=== PATIENT | male | born 1965 | race Caucasian/White ===

== ENCOUNTER 2021-09-30 12:46 | Emergency (ER) | payer OTHER, MEDICAID, SELFPAY ==
[2021-09-30 12:51] VITALS: BP 135/86; PULSE 61; RESP 16; TEMP 36.1; O2SAT 98; BMI 34.3
--- NOTE | 2021-09-30 14:34 | PC.NURSE ---
pt states he has had ear problems for 5-6years and has an appointment on the with [facility] ENT. Hx of ear infections. this time is different, he has never lost his hearing before. pt states he has been feeling dizzy and nauseated and his left eye feels blurry and swollen. He does not have ear wax any more, it is instead a white chalky discharge normally. pt feels pressure, like something is trying to push out of his ear.
--- NOTE | 2021-09-30 14:56 | ED.EAR ---
HPI - Ear Problem <LEFTY Cavazos Last Filed: 09/30/21 15:05> General Chief complaint: Ear Stated complaint: Sudden hearing loss in left ear Time Seen by Provider: 09/30/21 14:42 Mode of arrival: Ambulatory History of Present Illness HPI Narrative: This is a 56-year-old male presents to the emergency department due to decreased hearing as well clear drainage the left ear onset a few days ago. States that he has a chronic history of ear infections but is primarily concerned as he has had some decreased hearing on the left. Denies any fevers, but reports nausea as well slight dizziness. Has a follow-up appointment with ENT on 10/12/2021. Related Data Previous Rx's Medication Instructions Recorded ciprofloxacin 0.2 %-hydrocortisone 3 drp EAR-LEFT BID 7 Days #10 ml 09/30/21 1 % ear drops,suspension (Cipro HC) Allergies Allergy/AdvReac Type Severity Reaction Status Date / Time Sulfa (Sulfonamide Allergy Anxiety Verified 09/30/21 12:55 Antibiotics) Review of Systems <LEFTY Cavazos Last Filed: 09/30/21 15:05> Review of Systems Narrative: GENERAL: Denies chills, fatigue, malaise, fever, sweats. HEENT: Denies sinus pain, sore throat, difficulty swallowing, dizziness. Reports ear pain, and drainage RESPIRATORY: Denies dyspnea, cough, wheezing, hemoptysis, sputum. CARDIOVASCULAR: Denies chest pain, palpitations, orthopnea, edema, GASTROINTESTINAL: Reports nausea, denies vomiting, abdominal pain, diarrhea, constipation, melena. : Denies dysuria, frequency, incontinence, hematuria, urinary retention. MUSCULOSKELETAL: denies weakness, joint pain, or bony pain SKIN: Denies rash, skin lesions, or other NEUROLOGIC: Denies weakness, headache, numbness, change in speech, confusion, seizures, incoordination. Reports mild dizziness PSYCHIATRIC: No concerning psychosocial issues. 12 point review of systems is negative except for those stated above Patient History <LEFTY Cavazos Last Filed: 09/30/21 15:05> Social History Smoking Status: Former smoker Smoking Status: Former smoker Substance Use Type: does not use Exam <LEFTY Cavazos Last Filed: 09/30/21 15:05> Narrative Exam Narrative: GENERAL: Well-developed patient, in mild distress. HEAD: Atraumatic. Normocephalic. EYES: Pupils equal round and reactive. Extraocular motions intact. No scleral icterus. No injection or drainage. ENT: Nose without bleeding, purulent drainage. Throat without erythema, tonsillar hypertrophy or exudate. Airway patent. Small external auditory canal makes tympanic membrane visualization difficult.. Russo change noted in the left external auditory canal. No mastoid tenderness palpation and no pain with ear manipulation. NECK: Trachea midline. Non tender CARDIOVASCULAR: Regular rate and rhythm without murmurs, gallops, or rubs. RESPIRATORY: Clear to auscultation. Breath sounds equal bilaterally. No wheezes, rales, or rhonchi. GASTROINTESTINAL: Abdomen soft, non-tender, nondistended. EXTREMITIES: No edema or joint tenderness. BACK: Nontender without deformity or crepitance. No flank tenderness. NEURO: AOx3. SKIN: No rash or erythema of visible areas Initial Vital Signs Initial Vital Signs: Vital Signs Temperature 97 F L 09/30/21 12:51 Pulse Rate 61 09/30/21 12:51 Respiratory Rate 16 09/30/21 12:51 Blood Pressure 135/86 09/30/21 12:51 Pulse Oximetry 98 09/30/21 12:51 <Lizett Wu DO - Last Filed: 09/30/21 20:26> Initial Vital Signs Initial Vital Signs: Vital Signs Temperature 97 F L 09/30/21 12:51 Pulse Rate 61 09/30/21 12:51 Respiratory Rate 16 09/30/21 12:51 Blood Pressure 135/86 09/30/21 12:51 Pulse Oximetry 98 09/30/21 12:51 Course <Nishant Rowan PA-C - Last Filed: 09/30/21 15:05> Vital Signs Vital signs: Vital Signs - 8 hr 09/30/21 12:51 09/30/21 15:14 Temperature 97 F L Pulse Rate 61 63 Respiratory Rate 16 24 Blood Pressure 135/86 137/88 Pulse Oximetry 98 97 <Lizett Wu DO - Last Filed: 09/30/21 20:26> Vital Signs Vital signs: Vital Signs - 8 hr 09/30/21 12:51 09/30/21 15:14 Temperature 97 F L Pulse Rate 61 63 Respiratory Rate 16 24 Blood Pressure 135/86 137/88 Pulse Oximetry 98 97 Medical Decision Making <Nishant Rowan PA-C - Last Filed: 09/30/21 15:05> [facility] Narrative Medical decision making narrative: 56-year-old male presents to the emergency department due to suspected otitis externa. Purulence drainage noted on exam of difficult to know the membrane secondary to drainage. Will treat with antibiotic ear drops. Patient has a established ENT and has an appointment a scheduled in 2 weeks for further follow-up. Discharge Plan Departure Patient Disposition: Home Clinical Impression: Otitis externa Instructions: DI for Otitis Externa Activity Restrictions/Additional Instructions: Thank you for coming to the [facility] Emergency Department today. We will treat you for suspected external ear infection. Please use the drops as prescribed. Please follow-up with your ENT as he has scheduled on the . I hope you feel better soon. Prescriptions: New Cipro HC 0.2-1 % drops,suspension 3 drp EAR-LEFT BID 7 Days Qty: 10 0RF Visit Report Forms: Patient Portal/API <Lizett Wu DO - Last Filed: 09/30/21 20:26> Cosign ED Attending Cosignature Attestation: I was immediately available in the department for consultation. Documentation has been reviewed.
[2021-09-30 15:14] VITALS: BP 137/88; PULSE 63; RESP 24; O2SAT 97
== END 2021-09-30 15:16 | disposition home or self-care (01) ==
PROVIDERS: Emergency Provider Physician Assistant Medical
DX: H60.92 Unspecified otitis externa, left ear (principal)
CPT/HCPCS: 99281